=== PATIENT | female | born 1980 ===

== ENCOUNTER 2018-08-07 16:07 | Emergency (ER) | payer OTHER ==
[2018-08-07 17:21] VITALS: BP 112/68
--- NOTE | 2018-08-07 17:57 | UC ---
Throat Pain/Nasal Kory HPI - HPI Summary HPI Summary: Patient presents with 23 weeks of progressive frontal sinus pressure 8. Patient states she's been having headaches that she's been taking Motrin Tylenol with mild improvement. Patient states she's no sign of feels similar mac sinusitis with some postnasal drip. Patient denies any ear pain. No fevers or chills. No nausea vomiting. Patient states she's had sinus infections in the past but they usually in her cheeks and not in her frontal area. Patient without any vision changes. No nausea vomiting. No other complaints. Patient states she had a cold in July and her family went to, spray patient states she seemed to improve better but doesn't think it ever completely went away. Patient states her symptoms are better in the morning after shoplifting progressive up-to-date. Patient states she is not . Medications reviewed this visit. - History of Current Complaint Chief Complaint: UCGeneralIllness Stated Complaint: HEADACHE Time Seen by Provider: 08/07/18 17:56 Hx Obtained From: Patient Hx Last Menstrual Period: [id number] Onset/Duration: Gradual Onset Severity: Moderate Pain Intensity: 4 Pain Scale Used: 0-10 Numeric - Allergies/Home Medications Allergies/Adverse Reactions: Allergies Allergy/AdvReac Type Severity Reaction Status Date / Time No Known Allergies Allergy Verified 08/07/18 17:22 Home Medications: Home Medications Acetaminophen TAB* [Tylenol TAB*] 1,000 mg PO Q6H PRN 08/07/18 [History Confirmed 08/07/18] Ibuprofen TAB* [Motrin TAB* 400 MG] 400 mg PO Q6H PRN 08/07/18 [History Confirmed 08/07/18] Spironolactone TAB* [Aldactone TAB*] 75 mg PO DAILY 08/07/18 [History Confirmed 08/07/18] Tazarotene [Tazorac] 30 gm TP DAILY 08/07/18 [History Confirmed 08/07/18] PMH/Surg Hx/FS Hx/Imm Hx Previously Healthy: Yes - Surgical History Surgical History: Yes Surgery Procedure, Year, and Place: T&A, LEEP, wisdom teeth - Family History Known Family History: Positive: Non-Contributory - Social History Occupation: Employed Full-time Lives: With Family Alcohol Use: Rare Substance Use Type: None Smoking Status (MU): Never Smoked Tobacco Review of Systems All Other Systems Reviewed And Are Negative: Yes Constitutional: Positive: Fatigue Skin: Positive: Negative Eyes: Positive: Negative. Negative: Photophobia ENT: Positive: Nasal Discharge, Sinus Congestion, Sinus Pain/Tenderness. Negative: Sore Throat Respiratory: Positive: Negative Cardiovascular: Positive: Negative Gastrointestinal: Positive: Negative Is Patient Immunocompromised?: No Physical Exam - Summary Physical Exam Summary: Vital Signs Reviewed: Yes A+Ox3, no distress Eyes: Conjunctiva Clear, FAUSTINO. EOM intact and full ENT: Hearing grossly normal TM x 2 clear, + TTP frontal sinuses + TTP frontal sinuses mild max sinuses L>R. No TMJ pain. mmoist, uvula midline, no exudate, no erythema Neck: Positive: Supple Respiratory: Positive: No respiratory distress, No accessory muscle use + CTA throughout no w/r Cardiovascular: RRR nl s1, s2 no m/r CBT <2 sec abd soft + BS nt/nd no guarding, no distension Musculoskeletal Exam: PECK x 4 without difficulty Strength Intact, ROM Intact Neurological: Positive: Alert, + sensation throughout Psychological: Positive: Normal Response To Family Skin: Positive: no rash, no ecchymosis Triage Information Reviewed: Yes Vital Signs: Initial Vital Signs Temp 98.5 F 08/07/18 17:17 Pulse 72 08/07/18 17:17 Resp 16 08/07/18 17:17 BP 112/68 08/07/18 17:17 Pulse Ox 100 08/07/18 17:17 Throat Pain/Nasal Course/Dx - Course Course Of Treatment: Patient presents to urgent care with 2-3 weeks of progressive sinus congestion. Patient states she's been having frontal headaches. Patient is feeling fatigue. Patient states starting yesterday she had symmetrically sinus planks and postnasal drip and pressure in her face. Patient has been taking Motrin Tylenol with mild improvement. On exam patient with some discomfort on her frontal sinuses as well as in her maxillary sinus. Patient does have some nasal congestion. Patient declined nasal spray recommended humidified air. Recommend antibiotic. Patient given a prescription for Diflucan as needed. Return precautions discussed. Patient also given referral information to the physician referral Center as she doesn't have a primary care provider - Differential Dx/Diagnosis Provider Diagnosis: Sinusitis Discharge - Sign-Out/Discharge Documenting (check all that apply): Patient Departure All imaging exams completed and their final reports reviewed: No Studies - Discharge Plan Condition: Stable Disposition: HOME Prescriptions: Amoxicillin/Clavulanate TAB* [Augmentin TAB 875*] 875 mg PO BID #20 tab Fluconazole [Diflucan 150 MG (NF)] 150 mg PO ONCE PRN #1 tab PRN Reason: vaginal yeast infection Patient Education Materials: Sinusitis (ED) [place]errals: [facility] [[place]] No Primary Care Phys,NOPCP [Primary Care Provider] - Additional Instructions: - Stay well hydrated. Drink plenty of non-alcoholic, non-caffinated beverages. - Alternate ibuprofen (Advil, Motrin) 600mg and Tylenol every 3 hours for pain or fever. Take with food. Do NOT take for more than 4-5 days. - These infections are spread by secretions - do NOT share eating or drinking utensils - clean items you share with other people such as cell phones, computer mouse, TV remote, computer tablets,etc. Once you have been antibiotics for 2 days, change your toothbrush and your pillowcase. - get plenty of restful sleep - humidify the air in the room where you sleep - boil water, run a hot steam shower, vaporizer, cups of water by heat register - okay to take over the counter decongestant and cough medication - You have been given a prescription for diflucan - okay to take as needed for a vaginal yeast infection - Contact the physician referral for assistance establishing with a new primary care provider If you have worsening pain, fever, vomiting, confusion or any other concerns it is recommended you go to the emergency department for further evaluation and treatment - Billing Disposition and Condition Condition: STABLE Disposition: Home
== END 2018-08-07 18:19 | disposition home or self-care (01) ==
LOC: UCEAST 16:07
DX: J32.9 Chronic sinusitis, unspecified (principal)
CPT/HCPCS: 99212; G0463

== ENCOUNTER 2018-08-24 10:38 | Emergency (ER) | payer OTHER ==
--- OUTSIDE RECORDS SUMMARY | 2018-08-24 12:05 | XMS REPORT | Continuity of Care Document ---
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 Active Onset: 08/11/2015 Conjunctival pigmentation Kenji Iqbal O.D. Active Family History Date Family Member(s) Observation Comments General Thyroid Disease cousins General Cancer General Glaucoma great grandmother General Lazy Eye uncle, cousin Father Glasses Mother Glasses Social History Type Date Description Comments Sex Unknown ETOH Use Rarely consumes alcohol Tobacco Use Start: Unknown Patient has never smoked Smoking Status Reviewed: 08/15/18 Patient has never smoked Allergies, Adverse Reactions, Alerts Date Description Reaction Status Severity Comments 08/11/2015 Walnuts Active 08/11/2015 Bactrim Active banana flavor 11/27/2016 Seasonal Active Medications Medication Date Status Form Strength Qnty SIG Indications Ordering Provider Spironolactone Active Tablets 25mg Unknown 00 Doxycycline Hx Capsules 100mg Unknown Monohydrate - 11/28/19 17 Immunizations Description No Information Available Vital Signs Date Vital Result Comment 08/15/2018 3:03pm Intraocular Pressure Right Eye 15 mmHg Intraocular Pressure Left Eye 15 mmHg 11/27/2016 3:48pm Intraocular Pressure Right Eye 13 mmHg Intraocular Pressure Left Eye 13 mmHg 08/11/2015 10:43am Intraocular Pressure Right Eye 12 mmHg Intraocular Pressure Left Eye 12 mmHg Results Description No Information Available Procedures Date Code Description Status 08/15/2018 26053 Refraction Completed 08/15/2018 74090 Eye Exam Est Intermediate Completed 11/27/2016 70097 Refraction Completed 11/27/2016 04075 Eye Exam Est Intermediate Completed 08/11/2015 05638 Refraction Completed 08/11/2015 00847 Eye Exam Est Comprehensive Completed 03/04/2010 99247 Refraction Completed 03/04/2010 01340 Eye Exam New Comprehensive Completed 07/24/2008 44966 Refraction Completed 07/24/2008 94131 Eye Exam New Comprehensive Completed Encounters Description No Information Available Plan of Treatment 08/15/2018 - Kenji Walker, ODH11.133 Conjunctival pigmentations, [id number] Hypermetropia, bilateralFollow up:yearly full, sooner PRN
--- NOTE | 2018-08-24 12:14 | UC ---
Complaint Female HPI - HPI Summary HPI Summary: pain and burning with urination unsure if she had yeast infection or UTI so she took a diflucan 3 days ago and got relief in 20 minutes---one day of relief then symptoms returned called ob-system support specialist MD rx diflucan and topical cream again got relief quickly but now symptoms have returned-no vomiting, diarrhea---does have LBP - History Of Current Complaint Chief Complaint: UCGU Stated Complaint: urinary TRACK ISSUES Time Seen by Provider: 08/24/18 12:13 Hx Obtained From: Patient Hx Last Menstrual Period: [id number] ?: No Onset/Duration: Gradual Onset Timing: Intermittent Severity Initially: Mild Severity Currently: Mild Character: Sharp, Cramping Aggravating Factor(s): Urination Alleviating Factor(s): Position Associated Signs And Symptoms: Positive: Back Pain Related Hx: Para - 3 - Allergies/Home Medications Allergies/Adverse Reactions: Allergies Allergy/AdvReac Type Severity Reaction Status Date / Time walnut Allergy Hives/Diff. Verified 08/24/18 12:17 Breathing/I tching PMH/Surg Hx/FS Hx/Imm Hx Previously Healthy: Yes - Surgical History Surgical History: Yes Surgery Procedure, Year, and Place: T&A, LEEP, wisdom teeth - Family History Known Family History: Positive: Non-Contributory - Social History Occupation: Employed Full-time Lives: With Family Alcohol Use: Rare Substance Use Type: None Smoking Status (MU): Never Smoked Tobacco Review of Systems All Other Systems Reviewed And Are Negative: Yes Constitutional: Positive: Negative Skin: Positive: Negative Eyes: Positive: Negative ENT: Positive: Negative Respiratory: Positive: Negative Cardiovascular: Positive: Negative Gastrointestinal: Positive: Negative Genitourinary: Positive: Dysuria Motor: Positive: Negative Neurovascular: Positive: Negative Neurological: Positive: Headache Psychological: Positive: Negative Is Patient Immunocompromised?: No Physical Exam Triage Information Reviewed: Yes Appearance: Well-Appearing, No Pain Distress, Well-Nourished Vital Signs Reviewed: Yes Eye Exam: Normal Eyes: Positive: Conjunctiva Clear ENT Exam: Normal ENT: Positive: Normal ENT inspection, Hearing grossly normal, Pharynx normal. Negative: Trismus, Muffled voice, Hoarse voice, Dental tenderness, Sinus tenderness Dental Exam: Normal Neck exam: Normal Neck: Positive: Supple, Nontender Respiratory Exam: Normal Respiratory: Positive: Chest non-tender, Lungs clear, Normal breath sounds, No respiratory distress, No accessory muscle use Cardiovascular Exam: Normal Cardiovascular: Positive: RRR, No Murmur, Pulses Normal, Brisk Capillary Refill Abdominal Exam: Normal Abdomen Description: Positive: Nontender, No Organomegaly, Soft. Negative: CVA Tenderness (R), CVA Tenderness (L), Distended Bowel Sounds: Positive: Present Musculoskeletal Exam: Normal Musculoskeletal: Positive: Strength Intact, ROM Intact, No Edema Neurological Exam: Normal Neurological: Positive: Alert, Muscle Tone Normal Psychological Exam: Normal Psychological: Positive: Normal Response To Family Skin Exam: Normal Complaint Female Dx - Course Course Of Treatment: +2 leukoesterace and + macrobid and pyridium follow with pcp prn2 blood will treat for uti and culture urine, - Differential Dx/Diagnosis Provider Diagnosis: UTI (urinary tract infection) Discharge - Sign-Out/Discharge Documenting (check all that apply): Patient Departure All imaging exams completed and their final reports reviewed: No Studies - Discharge Plan Condition: Stable Disposition: HOME Prescriptions: Nitrofurantoin Monohyd/M-Cryst [Macrobid 100 mg Capsule] 100 mg PO BID #14 cap Phenazopyridine TAB* [Pyridium 100 mg TAB*] 100 mg PO TID PRN #15 tab PRN Reason: urinary pain Patient Education Materials: Urinary Tract Infection in Women (ED) Referrals: [facility] [Outside] - If Needed - Billing Disposition and Condition Condition: STABLE Disposition: Home
[2018-08-24 12:16] VITALS: BP 104/70
== END 2018-08-24 12:59 | disposition home or self-care (01) ==
LOC: UCEAST 10:38
DX: N39.0 Urinary tract infection, site not specified (principal); Z91.018 Allergy to other foods
CPT/HCPCS: 81003; 84702; 99212; G0463